=== PATIENT | female | born 1980 | race Caucasian/White ===

== ENCOUNTER 2019-04-05 22:19 | Emergency (ER) | payer OTHER ==
[~2019-04-05] VITALS: Ht 149.9 cm; Wt 90.7 kg
[2019-04-05 22:45] VITALS: BP 171/94
[2019-04-05] MEDS ORDERED: CODE10LI PO (23:09)
[2019-04-05] MEDS ORDERED: ALBU2.5V8 IH (23:09)
[2019-04-05] MEDS ORDERED: PRED20TA PO (23:09)
--- NOTE | 2019-04-05 23:09 | PHYS DOC ---
Past Medical History Past Medical History: No Pertinent History Past Surgical History: Hysterectomy Additional Information: Nonsmoker Alcohol Use: None Drug Use: None Adult General Chief Complaint Chief Complaint: COUGH HPI HPI 39-year-old female presents with 6 day history of URI-type symptoms including cough, sore throat, and nasal congestion. Reports subjective fever/chills. Denies known sick contacts. Denies trauma. Denies . Review of Systems Review of Systems Constitutional: Denies fever or chills Eyes: Denies redness or eye pain HENT: Reports nasal congestion and sore throat Respiratory: Reports cough; denies shortness of breath Cardiovascular: Denies chest pain or palpitations GI: Denies abdominal pain, nausea, or vomiting : Denies dysuria or hematuria Musculoskeletal: Denies back pain or joint pain Integument: Denies rash or skin lesions Neurologic: Denies headache, focal weakness or sensory changes Complete systems were reviewed and found to be within normal limits, except as documented in this note. Current Medications Current Medications Current Medications Medications (Trade) Dose Ordered Sig/Gaurav Start Time Stop Time Status Last Admin Dose Admin Dexamethasone (Decadron) 10 mg 1X ONCE 04/05/19 23:30 04/05/19 23:30 DC 04/05/19 23:19 10 MG Allergies Allergies Allergies Coded Allergies Type Severity Reaction Last Updated Verified Sulfa (Sulfonamide Antibiotics) Allergy Intermediate 04/05/19 Yes amoxicillin Allergy Intermediate 04/05/19 Yes doxycycline Allergy Intermediate 04/05/19 Yes Physical Exam Physical Exam Constitutional: Well developed, well nourished, no acute distress, non-toxic appearance. [] HENT: Normocephalic, atraumatic, bilateral external ears normal, oropharynx moist, no oral exudates, nose normal. [] Eyes: PERRLA, EOMI, conjunctiva normal, no discharge. [] Neck: Normal range of motion, no tenderness, supple, no stridor. [] Cardiovascular:Heart rate regular rhythm, no murmur [] Lungs & Thorax: Bilateral breath sounds clear to auscultation [] Abdomen: Bowel sounds normal, soft, no tenderness, no masses, no pulsatile masses. [] Skin: Warm, dry, no erythema, no rash. [] Back: No tenderness, no CVA tenderness. [] Extremities: No tenderness, no cyanosis, no clubbing, ROM intact, no edema. [] Neurologic: Alert and oriented X 3, normal motor function, normal sensory function, no focal deficits noted. [] Psychologic: Affect normal, judgement normal, mood normal. [] Current Patient Data Vital Signs Vital Signs Date Time Temp Pulse Resp B/P (MAP) Pulse Ox O2 Delivery O2 Flow Rate FiO2 04/05/19 22:45 100.7 107 16 171/94 (119) 95 Room Air 100.7 EKG EKG [] Radiology/Procedures Radiology/Procedures [] Course & Med Decision Making Course & Med Decision Making Pertinent Labs and Imaging studies reviewed. (See chart for details) [] Dragon Disclaimer Dragon Disclaimer This electronic medical record was generated, in whole or in part, using a voice recognition dictation system. Departure Departure Impression: Primary Impression: Bronchitis Disposition: 01 HOME, SELF-CARE Condition: STABLE Referrals: NO PCP (PCP) Patient Instructions: Acute Bronchitis, [id number] Scripts Codeine Phosphate/Guaifenesin (Guaifen-Codeine 200-20 mg/10Ml) 10 Ml Liquid 10 ML PO Q6-8HRS PRN for COUGH, #200 LIQUID Prov: CHRISTY JOSEPH DO 04/05/19 Prednisone (PREDNISONE) 20 Mg Tablet 2 TAB PO DAILY, #8 TAB Start this prescription tomorrow, Tuesday04/06/19 Prov: CHRISTY JOSEPH DO 04/05/19 Albuterol Sulfate (PROAIR HFA INHALER) 8.5 Gm Hfa.aer.ad 2 PUFF IH PRN Q4-6HRS PRN for wheezing for 21 Days, #1 INHALER 0 Refills Prov: CHRISTY JOSEPH DO 04/05/19 CHRISTY JOSEPH DO Apr 05, 2019 23:09
[2019-04-05] MEDS ORDERED: DEXAMETHASONE 4 MG TABLET PO ONE (23:30)
--- NOTE | 2019-04-06 04:34 | RAD ---
CHEST PA LATERAL INDICATION: Cough. COMPARISON STUDY: None. FINDINGS: Lungs: Normal lung volume. No pulmonary mass or consolidation. The tracheobronchial tree and hilar structures are normal. Pleura: No pleural effusion or pneumothorax. Heart and Mediastinum: The cardiomediastinal silhouette is normal. The great vessels of the thorax are normal. Bones and Soft Tissues: The bones and soft tissues are within normal limits. IMPRESSION: No acute cardiopulmonary process. Electronically signed by: Casey Carmona MD (04/06/2019 4:31 AM) [facility]
== END 2019-04-05 23:22 | disposition home or self-care (01) ==
LOC: ER 22:19
DX: J40 Bronchitis, not specified as acute or chronic (principal); Z88.1 Allergy status to other antibiotic agents; Z88.2 Allergy status to sulfonamides
CPT/HCPCS: 71046; 99284; J8540

== ENCOUNTER 2019-04-19 03:28 | Emergency (ER) | payer OTHER ==
[~2019-04-19] VITALS: Ht 149.9 cm; Wt 108.9 kg
[~2019-04-19 03:28] MED LIST: ALBU2.5V8 IH; CODE10LI PO; PRED20TA PO
[2019-04-19 03:33] VITALS: BP 139/82
--- NOTE | 2019-04-19 03:42 | PHYS DOC ---
Past Medical History Past Medical History: No Pertinent History Past Surgical History: Hysterectomy Alcohol Use: None Drug Use: None Adult General Chief Complaint Chief Complaint: FLU SYMPTOM HPI HPI 39 yo female with complaints of flu symptoms x 3 days. Patient states she has taken over the counter medications without significant improvement. She describes bodyaches, cough area patient states she just can't handle the weakness anymore. Patient's underlying history of asthma however she is not wheezing on examination. Blood pressure is 139/82, saturations 98%. Nothing makes her symptoms worse, nothing makes her symptoms better. MAXIMUM TEMPERATURE 102. Review of Systems Review of Systems Constitutional: fever HENT: nasal congestion Respiratory: Denies cough or shortness of breath [] Cardiovascular: No additional information not addressed in HPI [] GI: Denies abdominal pain, +nausea, no vomiting, bloody stools or diarrhea [] : Denies dysuria or hematuria [] Musculoskeletal: bodyaches Integument: Denies rash or skin lesions [] Neurologic: + headache, no focal weakness or sensory changes [] All other systems were reviewed and found to be within normal limits, except as documented in this note. Allergies Allergies Allergies Coded Allergies Type Severity Reaction Last Updated Verified Sulfa (Sulfonamide Antibiotics) Allergy Severe "STOP BREATHING" TX WITH EPI PER PT 04/19/19 No amoxicillin Allergy Intermediate 'gi upset per pt 04/19/19 Yes doxycycline Allergy Intermediate 04/05/19 Yes Physical Exam Physical Exam Constitutional: Well developed, well nourished, ill appearin, non-toxic appearance. [] HENT: Normocephalic, atraumatic, bilateral external ears normal, oropharynx moist, no oral exudates, nose normal. [] Eyes: PERRLA, EOMI, conjunctiva normal, no discharge. [] Neck: Normal range of motion, no tenderness, supple, no stridor. [] Cardiovascular: sinus tachycardia (108) Lungs & Thorax: Bilateral breath sounds clear to auscultation [] Abdomen: Bowel sounds normal, soft, no tenderness, no masses, no pulsatile masses. [] Skin: Warm, dry, no erythema, no rash. [] Extremities: No tenderness, no edema. [] Neurologic: Alert and oriented X 3, no focal deficits noted. [] Psychologic: Affect normal, judgement normal, mood normal. [] Current Patient Data Vital Signs Vital Signs Date Time Temp Pulse Resp B/P (MAP) Pulse Ox O2 Delivery O2 Flow Rate FiO2 04/19/19 03:33 98.4 110 20 139/82 (101) 98 Room Air 98.4 EKG EKG [] Radiology/Procedures Radiology/Procedures [] Course & Med Decision Making Course & Med Decision Making Pertinent Labs and Imaging studies reviewed. (See chart for details) []39 yo female with complaints of flu symptoms x 3 days. Patient states she has taken over the counter medications without significant improvement. She describes bodyaches, cough area patient states she just can't handle the weakness anymore. Patient's underlying history of asthma however she is not wheezing on examination. Blood pressure is 139/82, saturations 98%. Nothing makes her symptoms worse, nothing makes her symptoms better. MAXIMUM TEMPERATURE 102. + Influenza A Recommend dc home Symptomatic treatment Encourage fluids/po intake Sinus tachycarida has resolved Return precautions provided Dragon Disclaimer Dragon Disclaimer This electronic medical record was generated, in whole or in part, using a voice recognition dictation system. Departure Departure Impression: Primary Impression: Influenza A Disposition: 01 HOME, SELF-CARE Condition: STABLE Referrals: NO PCP (PCP) Patient Instructions: Influenza, Adult Additional Instructions: Recommend follow up with PCP 3 - 5 days Return to the ER with worsening symptoms, altered mental status Tylenol/Motrin as needed for pain Increase fluid intake as able Diet as tolerated OTC medications for symptomatic treatment CONOR SANFORD MD Apr 19, 2019 03:41
[2019-04-19 04:05] LABS: INFLUENZA A PATIENT POSITIVE (NEGATIVE); INFLUENZA B PATIENT NEGATIVE (NEGATIVE)
== END 2019-04-19 04:14 | disposition home or self-care (01) ==
LOC: ER 03:28
DX: J10.1 Influenza due to other identified influenza virus with other respiratory manifestations (principal); Z88.1 Allergy status to other antibiotic agents; Z88.2 Allergy status to sulfonamides
CPT/HCPCS: 87804; 99284

== ENCOUNTER 2019-09-23 02:06 | Emergency (ER) | payer OTHER ==
[~2019-09-23] VITALS: Ht 149.9 cm; Wt 90.9 kg
[2019-09-23 02:32] VITALS: BP 150/92
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
[2019-09-23] MEDS ORDERED: ORPHENADRINE CITRATE 60 MG/2 ML VIAL. IM ONE (04:00)
[2019-09-23] MEDS ORDERED: KETOROLAC 60 MG/2 ML VIAL. IM ONE (04:00)
== END 2019-09-23 03:50 | disposition home or self-care (01) ==
LOC: ER 02:06
DX: S46.912A Strain of unspecified muscle, fascia and tendon at shoulder and upper arm level, left arm, initial encounter (principal); S50.02XA Contusion of left elbow, initial encounter; M54.5 Low back pain; Z87.891 Personal history of nicotine dependence; Z88.1 Allergy status to other antibiotic agents; Z88.2 Allergy status to sulfonamides; Z90.710 Acquired absence of both cervix and uterus; W22.01XA Walked into wall, initial encounter; Y93.89 Activity, other specified; Y92.89 Other specified places as the place of occurrence of the external cause; Y99.8 Other external cause status
CPT/HCPCS: 72100; 73030; 73080; 96372; 99284; J1885; J2360